=== PATIENT | male | born 1990 | race Two or more races ===

== ENCOUNTER 2018-07-08 05:59 | Inpatient (IN) | payer OTHER ==
[2018-07-08] VITALS (19 sets, daily range): BP systolic 103–130; BP diastolic 45–75
[~2018-07-08] VITALS: Ht 182.9 cm; Wt 136.5 kg
[~2018-07-08 05:59] MED LIST: TYLENOL EXTRA500 MG ORAL
[2018-07-08] MEDS ORDERED: ceFAZolin sod 2 GM in D5W 110 ML IVPB ONE (07:00)
[2018-07-08] MEDS ORDERED: Vancomycin 1gm vial IVPB ONE (07:01)
[2018-07-08] MEDS ORDERED: Thrombin 5000 units TOPIC ONE (07:02)
[2018-07-08] MEDS ORDERED: Gelfoam Size TOPIC ONE (07:02)
[2018-07-08] MEDS ORDERED: Bacitracin 50000 Units Vial ONE (07:02)
[2018-07-08] MEDS ORDERED: Bupivacaine w/Epi 0.5% 30ml Vial INJ ONE (07:02)
[2018-07-08] MEDS ORDERED: Lidocaine 1% MPF 10mg/ml 5ml ONE (07:11)
[2018-07-08] MEDS ORDERED: Propofol 200mg/20ml IV ONE (07:11)
[2018-07-08] MEDS ORDERED: fentaNYL 100 mcg/2 mL IV ONE (07:11)
[2018-07-08] MEDS ORDERED: Midazolam 2mg/2ml Inj ONE (07:11)
[2018-07-08] MEDS ORDERED: Zemuron 50mg/5ml Inj IV ONE ×2 (07:21→08:27)
[2018-07-08] MEDS ORDERED: Succinylcholine 20mg/ml 10ml vial ONE (07:21)
--- NOTE | 2018-07-08 07:28 | Pre-Procedure Note/Attestation ---
Pre-Procedure Note/Attestation Complete Prior to Procedure Procedure Narrative: L L45 microdecompression and microdiscectomy Attestation I attest that I discussed the nature of the procedure; its benefits; risks and complications; and alternatives (and the risks and benefits of such alternatives ), prior to the procedure, with the patient (or the patient's legal provider service representative). I attest that, if there was a reasonable possibility of needing a blood transfusion, the patient (or the patient's legal provider service representative) was given the [facility] standardized written summary, pursuant to the Dillon Jeremias Blood Safety Act ([place] Health and Safety Code # 1645, as amended). I attest that I re-evaluated the patient just prior to the surgery and that there has been no change in the patient's H&P, except as documented below: Jostin Rain MD Jul 08, 2018 07:28
[2018-07-08] MEDS ORDERED: HYDROcodone/Acetamin 5/325 tab ORAL PRN (07:30)
[2018-07-08] MEDS ORDERED: Sterile Water Irrig 1000ml IRRIG ONE (07:30)
[2018-07-08] MEDS ORDERED: HYDROmorphone 1mg/ml Carpuject SUBQ PRN (07:30)
[2018-07-08] MEDS ORDERED: Naloxone 0.4mg/ml Inj IVP PRN (07:30)
[2018-07-08] MEDS ORDERED: HYDROcodone/Acetamin 7.5/325 tab ORAL PRN ×2 (07:30)
[2018-07-08] MEDS ORDERED: LR 1000ml ONE (07:30)
[2018-07-08] MEDS ORDERED: NS Irrig 1000ml ONE (07:30)
[2018-07-08] MEDS ORDERED: HYDROmorphone 1mg/ml Carpuject IVP PRN (07:30)
[2018-07-08] MEDS ORDERED: Metoclopramide 10mg/2ml Inj IVP PRN ×2 (07:30→08:45)
[2018-07-08] MEDS ORDERED: Milk of Magnesia 30ml Ud ORAL PRN (07:30)
[2018-07-08] MEDS ORDERED: Neostigmine 1mg/ml 10ml Inj ONE (07:30)
[2018-07-08] MEDS ORDERED: Morphine Sulfate 10mg/ml Inj ONE (08:22)
[2018-07-08] MEDS ORDERED: Sodium Chloride 10ml vial INJ ONE (08:23)
[2018-07-08] MEDS ORDERED: Ketorolac 30mg Inj ONE (08:23)
[2018-07-08] MEDS ORDERED: Glycopyrrolate 0.2mg/ml 1ml Vial ONE (08:23)
[2018-07-08] MEDS ORDERED: LR 1000ml 1,000 ML IVLG SCH (08:37)
--- NOTE | 2018-07-08 08:37 | Anethesia Preoperative Eval ---
Anesthesia Pre-op PMH/ROS General Date of Evaluation: Jul 08, 2018 Time of Evaluation: 07:20 Anesthesiologist: Marco Antonio ASA Score: ASA 2 Mallampati Score Class I : Soft palate, uvula, fauces, pillars visible Class II: Soft palate, uvula, fauces visible Class III: Soft palate, base of uvula visible Class IV: Only hard plate visible Mallampati Classification: Class II Surgeon: Briseyda Diagnosis: Lumbar radiculopathy Surgical Procedure: L4-L5 laminotomy with decompression Anesthesia History: none Family History: no anesthesia problems Allergies: Coded Allergies: No Known Allergies (Unverified , 07/08/18) Medications: see eMAR Patient NPO?: Yes NPO Date: Jul 08, 2018 NPO Time: 0000 Past Medical History Cardiovascular: Denies: HTN, CAD, PR, valve dz, arrhythmia, other Pulmonary: 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 Exam Physician Exam Last Vital Signs Date Time Temp Pulse Resp B/P (MAP) Pulse Ox O2 Delivery O2 Flow Rate FiO2 07/08/18 06:26 Room Air 07/08/18 06:24 97.3 81 20 117/75 (89) 98 Constitutional: NAD Cardiovascular: RRR, no M/R/G Respiratory: CTA Gastrointestinal: other - obesity Airway Exam Mallampati Score: Class II MO: full Neck: flexible ROM: full Teeth: intact Dentures: no upper, no lower Anesthesia Pre-op A/P Labs see chart Studies Pre-op Studies: EKG - NSR Risk Assessment & Plan Assessment: ASA 2 Plan: GA with ETT prone position, PONV prevention Status Change Before Surgery: No Pre-Antibiotics Drug: Ancef 2gr. Given Within 1 Hr of Incision: Yes Time Given: 08:09 Flex Bernard MD Jul 08, 2018 08:37
[2018-07-08] MEDS ORDERED: Hydromorphone 0.5mg/0.5ml inj IVP PRN (08:45)
[2018-07-08] MEDS ORDERED: Acetaminophen (Non formulary) 100 ML IV ONE (08:45)
[2018-07-08] MEDS ORDERED: Midazolam 2mg/2ml Inj IVP PRN (08:45)
[2018-07-08] MEDS ORDERED: Ketorolac 30mg Inj IV PRN (08:45)
[2018-07-08] MEDS ORDERED: DiphenhydrAMINE 50mg/ml Inj IVP PRN (08:45)
[2018-07-08] MEDS ORDERED: Meperidine 50mg/ml Inj(FOR RIGORS ONLY) IV PRN (08:45)
--- NOTE | 2018-07-08 10:07 | Immediate Post-Op Evaluation ---
Immediate Post-Op Evalulation Immediate Post-Op Evalulation Procedure: L4-L5 laminotomy with decompression Date of Evaluation: Jul 08, 2018 Time of Evaluation: 10:06 IV Fluids: 1100 Blood Products: none Estimated Blood Loss: 100 Urinary Output: 100 Blood Pressure Systolic: 121 Blood Pressure Diastolic: 64 Pulse Rate: 80 Respiratory Rate: 22 O2 Sat by Pulse Oximetry: 99 Temperature (Fahrenheit): 98.1 Pain Score (1-10): 1 Nausea: No Vomiting: No Complications none Patient Status: reacts, patent, extubated, none Hydration Status: adequate Flex Bernard MD Jul 08, 2018 10:07
--- NOTE | 2018-07-08 10:10 | NUR ---
CASE MANAGEMENT:REVIEW 28YR OLD MALE HERE FOR ELECTIVE SURGERY SI: LUMBAR RADICULOPATHY 97.3 81 20 117/75 98% ON RA IS: TO SURGERY FOR: L4 L5 LAMINOTOMY W/DECOMPRESSION : CURRENTLY IN SURGERY
--- NOTE | 2018-07-08 10:17 | Brief Operative Note ---
Immediate Post Operative Note Operative Note Pre-op Diagnosis: L45 disc herniation with radiculopathy Procedure: L L45 microdecompression and microdiscectomy Post-op Diagnosis: CYNTHIA Post-op Diagnosis: same as pre-op Findings: consistent w/pre-op dx studies Surgeon: Briseyda Icu Nurse: None Anesthesiologist: Marco Antonio Anesthesia: general Specimen: yes - L45 disc Complications: yes Condition: stable Fluids: 1000 cc Estimated Blood Loss: minimal - 100 Drains: none Implant(s) used?: No Jostin Rain MD Jul 08, 2018 10:17
--- NOTE | 2018-07-08 11:12 | Diagnostic Imaging Report ---
INDICATION: Pain, intraoperative TECHNIQUE: Intraoperative imaging Fluoroscopy time: 7.4 seconds Total dose: 0.76586 mGym2 Total number of images: One COMPARISON: None FINDINGS: Single lateral intraoperative image demonstrates a surgical tool projected posterior to what is presumably the L4-5 disc IMPRESSION: Intraoperative imaging, as described
--- NOTE | 2018-07-08 11:30 | NUR ---
NURSE NOTES: PATIENT RECEIVED FROM PACU ON BED IN SUPINE POSITION. HOB @ 30 DEGREES. AOX4. AROUSABLE TO NAME. SURGICAL SITE C/D/I.CMS WNL. DENIES PAIN AT THIS TIME. ORIENTED TO ROOM. CALL LIGHT WITHIN REACH. BED IN LOW AND LOCKED POSITION.
[2018-07-08] MEDS: D5 1/2NS 1,000 ML IV SCH ×2 (13:54→20:17)
[2018-07-08] MEDS: ceFAZolin sod 1 GM in D5W 55 ML IV SCH ×2 (16:24→23:50)
--- NOTE | 2018-07-08 17:30 | Operative Note - Dictated ---
DATE OF OPERATION: 07/08/2018 PREOPERATIVE DIAGNOSIS: L4-L5 disk protrusion, stenosis, and left lower extremity radiculopathy. POSTOPERATIVE DIAGNOSIS: L4-L5 disk protrusion, stenosis, and left lower extremity radiculopathy. PROCEDURE PERFORMED: 1. Left L4-L5 medial facetectomy, foraminotomy, and microdiskectomy. 2. Intraoperative use of fluoroscopy. 3. Intraoperative use of microscope. SURGEON: Jostin Rain M.D. CARGO TRIMMER: There was no front office medical assistant. ANESTHESIA: General endotracheal anesthesia. ANESTHESIOLOGIST: Flex Bernard M.D. EBL: 100 mL. IV FLUIDS: One liter of crystalloid. SPECIMEN: L4-L5 disk. COMPLICATIONS: None. INDICATIONS: This is a pleasant gentleman who had failed nonoperative treatments and option for above treatment was given. Risks, alternatives, and benefits were discussed with the patient at length. Risks include, but not limited to, anesthesia complication including , medical complications including liver, kidney, and cardiopulmonary deficits, bleeding, infection, neurovascular injury, pars fracture, instability, as well as other complications including recurrent disk herniation. The patient understood and wished to proceed. INTRAOPERATIVE FINDINGS: Left-sided L4-L5 lateral recess stenosis, disk protrusion with stenosis. OPERATIVE PROCEDURE: The patient was brought into the operating room supine on a stretcher. Appropriate IV lines were placed by the anesthesiologist. A grams of Ancef was administered intravenous before surgery. The patient was induced and intubated without complication and at this point, a Park was placed under sterile conditions. Sequential compression devices were placed onto the bilateral lower extremities. The patient at this point was gently turned over onto the Josh frame. All bony prominences well padded and the abdomen was assured to lay freely. Preoperative fluoroscopy was used to locate the L4-L5 interspace and at this point an indelible marker was used at the midline to irina the planned incision. The back was prepped and draped in usual sterile fashion with alcohol, chlorhexidine scrub, ChloraPrep, and Ioban draping. I was prepped and gowned myself and at this point, intraoperatively sterilely draped microscope was brought into the field and the incision was carried out in the midline over the L4-L5 interspace and subperiosteal dissection was made on the left side at L4-L5 The lateral facet joint capsule was well preserved. Energy Broker retractors were set into place and a radiopaque marker was placed at the lower pedicle level and the L5 pedicle and thus the L4-L5 interspace was positively identified. Once this was accomplished, attention was diverted to the decompression with a high-speed drill, straight and curved curettes, #2 through #5 Kerrison punches. A inter lumbar laminotomy, medial facetectomy, and foraminotomy entailed. The left L5 pedicle was skeletonized for a complete decompression of the traversing and exiting L5 nerve root posteriorly. At this point, a bipolar cautery was used to coagulate the epidural veins with control of bleeding was undertaken. The Meraux 4 retractor was used to gently retract the neural elements and with a nerve root retractor, the neural elements were held into place. Microscissors were used to prep the coagulated veins and a disk protrusion was found central and left paracentral causing impingement of the L5 traversing nerve root. At this point, a #11 scalpel was used to make a slit incision into the posterior annulus of L4-5 and with Srinath nerve hook Muhlenberg probe, straight pituitaries, forward angled, and backward angled pituitaries. The microdiskectomy entailed all free disc material was removed until the floor of the canal was flat. Disk space irrigation was used. Some of the disk was passed off for specimen. Other parts of the disk were sucked through the suction machine and was not passed off for specimen. At this point, after irrigation, there was no other loose fragments. The floor of the canal was flat. There was good central and lateral recess decompression as well as foraminal decompression for the exiting L4 nerve root. A Jean Baptiste ball was used to check for the patency of the lateral recess and foramina and they were found to be completely patent. Valsalva was done at 40 mmHg. There was no CSF leak. At this point, attention was diverted to closure. All sponge, needle, and instrument counts were correct. A 1 g of vancomycin powder was placed subfascially and suprafascially. The dorsal lumbar fascia was closed with #1 Vicryl sutures in a watertight interrupted fashion and at this point attention was diverted to closure of the skin. The subdural and subcuticular layers were closed with 2-0 Vicryl sutures. The skin was closed with Dermabond, Telfa, and sterile Tegaderm. The patient was turned supine, was extubated in stable condition, was found to be neurovascularly intact, was admitted to the hospital for monitoring. Jostin Rain M.D. DR: Shakir JOB#: [id number] CC:
[2018-07-08] MEDS: Docusate 100mg cap ORAL SCH (18:06)
--- NOTE | 2018-07-08 18:25 | NUR ---
NURSE NOTES: PATIENT REMAINS STABLE. PAIN MANAGED WITH DILAUDID 2 MG SUBCUTE. VSS.AFEBRILE. SURGICAL SITE REMAINS C/D/I. CMS WNL. PATIENT AND SPOUSE INSTRUCTED ON SPINE PRECAUTIONS. VERBALIZED UNDERSTANDING. TOLERATING CLEAR LIQUID.
--- NOTE | 2018-07-08 19:26 | NUR ---
NURSE NOTES: Report taken from BJ Sheppard. Patient is awake and in bed, A&Ox4. No signs of distress on room air. Having some pain, 6/10, radiating down the upper left lower extremity. Having some weakness with dorsiflexion. Surgical site c/d/i, no further skin issues. IV site c/d/i and patent. Has not urinated since brought up to floor, MD made aware. Continue to monitor, bladder scan if patient not able to go before bed time. Bed in lowest position, call light within reach.
--- NOTE | 2018-07-08 21:02 | Cardiology Progress Note ---
Assessment/Plan Assessment/Plan [id number] Objective Last 24 Hour Vital Signs Date Time Temp Pulse Resp B/P (MAP) Pulse Ox O2 Delivery O2 Flow Rate FiO2 07/08/18 16:00 98.3 62 18 108/54 (72) 95 07/08/18 14:23 98.0 07/08/18 14:00 98.1 65 18 108/52 (70) 97 07/08/18 13:00 98.0 79 16 103/52 (69) 98 07/08/18 12:00 97.9 77 18 104/52 (69) 98 07/08/18 11:40 Nasal Cannula 3.0 07/08/18 11:40 97.6 20 104/46 (65) 98 07/08/18 11:30 97.6 77 18 112/45 100 Nasal Cannula 3 07/08/18 11:30 97.6 81 20 104/46 (65) 98 07/08/18 11:15 71 16 118/58 100 Nasal Cannula 3 07/08/18 11:10 94 20 114/62 100 Nasal Cannula 3 07/08/18 11:00 73 17 112/52 100 Nasal Cannula 3 07/08/18 10:55 98.0 07/08/18 10:55 98.0 07/08/18 10:55 65 15 122/54 100 Nasal Cannula 3 07/08/18 10:40 69 14 126/60 100 Nasal Cannula 3 07/08/18 10:35 75 18 130/54 100 Nasal Cannula 3 07/08/18 10:25 74 17 130/63 100 Simple Mask 6 07/08/18 10:15 76 15 104/60 100 Simple Mask 6 07/08/18 10:10 78 16 108/58 100 Simple Mask 6 07/08/18 10:07 80 22 99 07/08/18 10:05 80 17 106/53 100 Simple Mask 6 07/08/18 10:02 98.0 82 14 112/64 100 Simple Mask 6 07/08/18 06:26 Room Air 07/08/18 06:24 97.3 81 20 117/75 (89) 98 Intake and Output 07/07/18 07/08/18 18:59 06:59 # Voids 1 Microbiology Date/Time Source Procedure Growth Status 07/08/18 06:20 Nasal Nares MRSA Culture - Final NO METHICILLIN RESISTANT STAPH AUREUS... Resulted Daneshrad,Yonatan S. MD Jul 08, 2018 21:02
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
[2018-07-09] VITALS: BP 110/68
[2018-07-09 04:00] VITALS: BP 120/67
--- NOTE | 2018-07-09 07:26 | NUR ---
HAND-OFF: Report given to BJ Sheppard. Patient is stable.
--- NOTE | 2018-07-09 07:30 | NUR ---
NURSE NOTES: WALKING ROUNDS DONE WITH OUTGOING RN. PATIENT AWAKE. UP TO BEDSIDE. SPOUSE ATR BEDSIDE. LUMBAR DRSG C/D/I. CMS WNL.MEDICATED FOR SURGICAL SITE PAIN. DISCUSSED PLAN OF CARE FOR THE DAY. VERBALIZED UNDERSTANDING. CALL LIGHT WITHIN REACH. WILL BE SEEN BY PHYSICAL THERAPY.
--- NOTE | 2018-07-09 07:48 | 48 Hour Post Anesthesia Eval ---
Post Anesthesia Evaluation Procedure: L4-L5 laminotomy with decompression Date of Evaluation: Jul 09, 2018 Time of Evaluation: 07:47 Blood Pressure Systolic: 120 0: 74 Pulse Rate: 68 Respiratory Rate: 20 Temperature (Fahrenheit): 97.6 O2 Sat by Pulse Oximetry: 99 Airway: patent Nausea: No Vomiting: No Pain Intensity: 3 Hydration Status: adequate Cardiopulmonary Status: stable Mental Status/LOC: patient returned to baseline Follow-up Care/Observations: n/a Post-Anesthesia Complications: none Follow-up care needed: ready to discharge Flex Bernard MD Jul 09, 2018 07:48
[2018-07-09] MEDS: D5 1/2NS 1,000 ML IV SCH (07:51)
[2018-07-09 08:00] VITALS: BP 133/69
[2018-07-09] MEDS: Docusate 100mg cap ORAL SCH (09:06)
[2018-07-09] MEDS: ceFAZolin sod 1 GM in D5W 55 ML IV SCH (09:06)
[2018-07-09 12:00] VITALS: BP 108/69
--- NOTE | 2018-07-09 12:30 | NUR ---
NURSE NOTES: PLACED CALL TO DR. MANSFIELD OF PAT'S ORAL TEMP 100.7. ORDERS RECEIVED. ENCOURAGED PATIENT TO C/D/B AND CONTINUE TO USE INCENTIVE SPIROMETRY. RETURN DEMONSTRATION SUCCESSFUL. PATIENT HAD 2ND SESSION WITH P.T. TOLERATED WELL. ORAL TEMP RE-CHECKED. NOTED 99.2. DR. MANSFIELD OK TO DISCHARGE. PATIENT AWARE. SITTING IN CHAIR WITH AT BEDSIDE.
[2018-07-09] MEDS ORDERED: NORCO 10-325 T1 EACH ORAL (13:18)
[2018-07-09] MEDS ORDERED: NAPROXEN250 MG ORAL (13:18)
--- NOTE | 2018-07-09 14:52 | NUR ---
NURSE NOTES: PATIENT READY FOR DISCHARGE. FWW/ RAISED TOILET SEAT PROVIDED. REVIEWED DISCHARGE INSTRUCTIONS WITH PATIENT AND .QUESTIONS ANSWERED.VERBALIZED UNDERSTANDING. ALL BELONGINGS WITH . RX FILLED AND GIVEN. PATIENT EDUCATION REVIEWED AND GIVEN. WILL F/U WITH DR. MANSFIELD DISCUSSED.
[2018-07-09] MEDS ORDERED: D5 1/2NS 1000ml IV ONE (15:09)
[2018-07-09] MEDS ORDERED: Tubing IV Secondary IV ONE (15:09)
--- NOTE | 2018-07-09 15:17 | NUR ---
P.T NOTE: P.T evaluation completed and tx initiated per spinal protocol. Please refer to P.T evaluation for current functional status. Skilled P.T service is warranted to ensure safety with compliance with spinal and movement precautions when performing ADL/functional mobilities following L-spine surgery.
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
== END 2018-07-09 15:10 | disposition home or self-care (01) | DRG 519 ==
LOC: SDSOVERFLO 05:59 → 3E 11:49
PROC: 01NB0ZZ Release Lumbar Nerve, Open Approach (ICD-10-PCS; principal; 2018-07-08 07:30)
PROC: 0SB20ZZ Excision of Lumbar Vertebral Disc, Open Approach (ICD-10-PCS; principal; 2018-07-08 07:30)
DX: M51.16 Intervertebral disc disorders with radiculopathy, lumbar region (principal); Z68.41 Body mass index [BMI] 40.0-44.9, adult; M48.061 Spinal stenosis, lumbar region without neurogenic claudication; V89.2XXS Person injured in unspecified motor-vehicle accident, traffic, sequela; E66.9 Obesity, unspecified; R39.11 Hesitancy of micturition
CPT/HCPCS: 36415; 72020; 76000; 86850; 86900; 86901; 87081; 94003; 94150; J2250; J2405; J2710